=== PATIENT | male | born 1980 | race Caucasian/White ===

== ENCOUNTER 2020-06-05 16:02 | Emergency (ER) | payer OTHER ==
--- NOTE | 2020-06-05 16:19 | ED Physician Documentation ---
PD HPI UPPER EXT INJURY - Stated complaint Stated Complaint: RT HAND LAC - Chief complaint Chief Complaint: Laceration - History obtained from History obtained from: Patient - History of Present Illness Location: Right, Hand (cut palm/thenar area on edge of broken glass bottle at work. It did not break in his hand and he does not feel there is broken glass in it.) Where injury occurred: Work Timing - onset: Today Worsened by: Moving, Palpating (does hurt with index finger movement, some with thumb opposition.) Associated symptoms: No: Weakness, Numbness, Tingling Recently seen: Not recently seen Review of Systems Constitutional: denies: Fever, Chills Nose: denies: Rhinorrhea / runny nose, Congestion Throat: denies: Sore throat Respiratory: denies: Cough Skin: reports: Laceration (s). denies: Rash Neurologic: denies: Focal weakness, Numbness PD PAST MEDICAL HISTORY - Past Medical History Cardiovascular: None Endocrine/Autoimmune: None - Allergies Allergies/Adverse Reactions: Allergies Allergy/AdvReac Type Severity Reaction Status Date / Time No Known Drug Allergies Allergy Verified 06/05/20 16:14 PD ED PE NORMAL - Vitals Vital signs reviewed: Yes - General General: Alert and oriented X 3, No acute distress, Well developed/nourished - Derm Derm: Normal color, Warm and dry - Extremities Extremities: Other (right thenar area with horizontal laceration 3 cm down to muscle tissue. No FB seen. No sharp feeling with palpation. Minimal bleeding in ER. Strong index/thumb flexion. Pain with ROM. ) - Neuro Neuro: Alert and oriented X 3, No motor deficit, No sensory deficit Results - Vitals Vitals: Vital Signs - 24 hr 06/05/20 06/05/20 16:14 17:17 Temperature 37 C Heart Rate 83 101 H Respiratory 16 18 Rate Blood Pressure 143/86 H 124/84 H O2 Saturation 97 98 Oxygen O2 Source Room air Procedures - Laceration (location) right thenar area Length in cm: 3 Wound type: Linear, Into muscle, Clean Neurovascular status: Sensory intact, Motor intact, Vascular intact Tendon involvement: No: Tendon Injury Anesthesia: Lidocaine 1% with epi Wound Preparation: Irrigated copiously NS, Wound explored, To the base. No: FB identified Skin layer closure: Nylon, Running, Size #-0 - enter number (4), Sutures - enter # (17) Other: Patient tolerated well, No complications, Neurovascular intact, Dressing applied, Tetanus booster given Complexity: Simple PD MEDICAL DECISION MAKING - ED course Complexity details: considered differential, d/w patient Departure - Departure Disposition: 01 Home, Self Care Clinical Impression: Laceration of right palm Qualifiers: Encounter type: initial encounter Qualified Code(s): S61.411A - Laceration without foreign body of right hand, initial encounter Condition: Stable Record reviewed to determine appropriate education?: Yes Instructions: ED Laceration Hand Comments: It is okay to wash and shower. Clean off the wound twice a day with soap and water, or peroxide and water. Apply some antibiotic ointment to it to keep it moist. Also to watch for signs of infection such as purulence, redness or increasing pain. Return to your primary care or the ER at the specified time for suture removal. Suture removal 8 to 10 days. Ibuprofen 600 mg 3 times a day and add Tylenol if needed for pain. Light use of that hand until the sutures are out and use a wrist splint to protect it when needed. Forms: Activity restrictions Discharge Date/Time: 06/05/20 17:22
[2020-06-05] MEDS ORDERED: TETANUS/DIPHTHERIA/PERTUSSIS 0.5 ML SYRINGE IM ONE (17:06)
[2020-06-05] MEDS ORDERED: BACITRACIN ZINC OINT 1 PACKET TOP STA (17:06)
[2020-06-05 17:18] VITALS: BP 124/84
== END 2020-06-05 17:22 | disposition home or self-care (01) ==
LOC: ED 16:02
DX: S61.411A Laceration without foreign body of right hand, initial encounter (principal); W25.XXXA Contact with sharp glass, initial encounter; Y92.89 Other specified places as the place of occurrence of the external cause; Y99.0 Civilian activity done for income or pay
CPT/HCPCS: 12002; 90471; 90715; 99283; A9270